=== PATIENT | male | born 1945 | race Caucasian/White ===

== ENCOUNTER 2017-03-28 18:52 | Emergency (ER) | payer MEDICARE, OTHER ==
--- NOTE | 2017-03-28 18:57 | ER Report ---
History and Physical Time Seen By MD: 18:56 HPI/ROS CHIEF COMPLAINT: dizziness, diaphoresis HISTORY OF PRESENT ILLNESS: This is a 71 year old male. He was brought to the ER after having an episode of diaphoresis, nausea and weakness. He had just taken his evening medicines including his insulin. He ate a salad prior to getting ready to eat dinner. His blood sugar was about 130. About 30 minutes after taking his medicines, he started to feel this way. No shortness of breath. No chest pain. EMS arrived and did a blood glucose check which was 57. They gave him an Amp of D50. He has never had low blood sugar problems in the past. He did just start on Actos because of high blood sugars. He said that this is working well for him. He is feeling better now. REVIEW OF SYSTEMS: Constitutional: No fever or chills. Eyes: No vision changes. ENT: No sore throat. No congestion. Cardiovascular: No chest pain. Respiratory: No shortness of breath. Gastrointestinal: No abdominal pain. No nausea or vomiting. Genitourinary: No dysuria. Musculoskeletal: No back pain. Skin: No rashes. Neurological: No numbness. No weakness. Allergies: Coded Allergies: ciprofloxacin (Unverified Allergy, Unknown, palpatations, 02/22/14) Uncoded Allergies: quentalin (Allergy, Mild, 03/28/17) Home Meds Reported Medications Naproxen Sodium (ALEVE) 220 Mg Tablet, 1 TAB PO PRN 02/22/14 Ca Carbonate/Vitamin D3/Vit K (VIACTIV SOFT CHEW TABLET) 1 Each Tab.chew, 1 TAB PO QDAY, TAB.CHEW 02/22/14 Multivitamin (DAILY MULTIPLE VITAMIN) 1 Each Tablet, 1 TAB PO DAILY 02/22/14 Aspirin (ASPIR 81) 81 Mg Tablet., 1 TAB PO QDAY, TAB 02/22/14 Reviewed Nurses Notes: Yes Smoking Status: Former Smoker Constitutional Vital Sign - Last 24 Hours 03/28/17 03/28/17 03/28/17 03/28/17 18:52 18:54 18:55 19:00 Temp 97.9 Pulse ??? 56 Resp 20 B/P (MAP) 153/84 153/84 (107) 133/77 (95) Pulse Ox 95 O2 Delivery Room Air 03/28/17 03/28/17 03/28/17/19/18 19:07 19:22 19:30 19:35 Pulse 51 49 47 Resp 10 13 B/P (MAP) 122/71 (88) Pulse Ox 93 94 91 03/28/17 03/28/17 03/28/17 03/28/17 19:50 20:00 20:05 20:20 Pulse 49 50 ??? Resp 18 13 B/P (MAP) 129/76 (93) Pulse Ox 92 94 03/28/17 03/28/17 03/28/17 03/28/17 20:30 20:35 20:50 21:00 Pulse 52 52 B/P (MAP) 148/86 (106) 128/72 (90) Pulse Ox 93 92 03/28/17 03/28/17 03/28/17 03/28/17 21:05 21:20 21:30 21:35 Pulse 59 47 60 B/P (MAP) 112/60 (77) Pulse Ox 94 92 90 03/28/17 03/28/17 03/28/17 21:50 22:00 22:05 Pulse 53 ??? B/P (MAP) 119/64 (82) Pulse Ox 90 Physical Exam General Appearance: The patient is alert. No acute distress. Non-toxic in appearance. Eyes: Pupils are equal, round. No pallor, injection or icterus. ENT: Mucous membranes are moist. Normal oral mucosa. Posterior oropharynx is normal. Neck: Supple and non tender. Respiratory: Lungs are clear to auscultation. Cardiovascular: Regular rate and rhythm. No murmurs, gallops or rubs. Normal capillary refill. Gastrointestinal: Abdomen is soft and non tender. Nondistended. Normal active bowel sounds. Neurological: Alert and oriented x3. No focal neurologic deficits Skin: Warm and dry. Musculoskeletal: Extremities are nontender. No tenderness in palpation of the cervical, thoracic and lumbar spine. DIFFERENTIAL DIAGNOSIS: After history and physical exam, differential diagnosis was considered for dizziness, hyperglycemia Medical Decision Making Data Points Result Diagram: 03/28/17183903/28/171839 Laboratory Hematology Test 03/28/17 18:40 03/28/17 21:54 Red Blood Count 5.22 M/uL (4.00-5.60) Mean Corpuscular Volume 90.4 fL (80.0-96.0) Mean Corpuscular Hemoglobin 31.0 pg (26.0-33.0) Mean Corpuscular Hemoglobin Concent 34.3 g/dL (32.0-36.0) Red Cell Distribution Width 12.7 % (11.5-14.5) Mean Platelet Volume 10.0 fL (7.2-11.1) Neutrophils (%) (Auto) 51.0 % (39.4-72.5) Lymphocytes (%) (Auto) 31.2 % (17.6-49.6) Monocytes (%) (Auto) 13.1 % (4.1-12.4) Eosinophils (%) (Auto) 3.4 % (0.4-6.7) Basophils (%) (Auto) 1.3 % (0.3-1.4) Nucleated RBC Relative Count (auto) 0.1 /100WBC Neutrophils # (Auto) 4.2 K/uL (2.0-7.4) Lymphocytes # (Auto) 2.5 K/uL (1.3-3.6) Monocytes # (Auto) 1.1 K/uL (0.3-1.0) Eosinophils # (Auto) 0.3 K/uL (0.0-0.5) Basophils # (Auto) 0.1 K/uL (0.0-0.1) Nucleated RBC Absolute Count (auto) 0.01 K/uL Sodium Level 140 mmol/L (137-145) Potassium Level 3.3 mmol/L (3.5-5.0) Chloride Level 104 mmol/L (98-107) Carbon Dioxide Level 23 mmol/L (22-30) Blood Urea Nitrogen 25 mg/dl (9-21) Creatinine 0.90 mg/dl (0.66-1.25) Glomerular Filtration Rate Calc > 60.0 Random Glucose 57 mg/dl (75-110) Calcium Level 10.1 mg/dl (8.4-10.2) Total Bilirubin 0.5 mg/dl (0.2-1.3) Aspartate Amino Transf (AST/SGOT) 29 U/L (0-35) Alanine Aminotransferase (ALT/SGPT) 33 U/L (0-56) Alkaline Phosphatase 73 U/L (0-126) Troponin I < 0.012 ng/ml Total Protein 7.5 gm/dl (6.3-8.2) Albumin 4.5 g/dl (3.5-5.0) Whole Blood Glucose 254 mg/DL (75-110) Chemistry Test 03/28/17 18:40 03/28/17 21:54 White Blood Count 8.2 k/uL (4.5-11.0) Red Blood Count 5.22 M/uL (4.00-5.60) Hemoglobin 16.2 g/dL (14.0-18.0) Hematocrit 47.2 % (42.0-52.0) Mean Corpuscular Volume 90.4 fL (80.0-96.0) Mean Corpuscular Hemoglobin 31.0 pg (26.0-33.0) Mean Corpuscular Hemoglobin Concent 34.3 g/dL (32.0-36.0) Red Cell Distribution Width 12.7 % (11.5-14.5) Platelet Count 247 K/uL (150-450) Mean Platelet Volume 10.0 fL (7.2-11.1) Neutrophils (%) (Auto) 51.0 % (39.4-72.5) Lymphocytes (%) (Auto) 31.2 % (17.6-49.6) Monocytes (%) (Auto) 13.1 % (4.1-12.4) Eosinophils (%) (Auto) 3.4 % (0.4-6.7) Basophils (%) (Auto) 1.3 % (0.3-1.4) Nucleated RBC Relative Count (auto) 0.1 /100WBC Neutrophils # (Auto) 4.2 K/uL (2.0-7.4) Lymphocytes # (Auto) 2.5 K/uL (1.3-3.6) Monocytes # (Auto) 1.1 K/uL (0.3-1.0) Eosinophils # (Auto) 0.3 K/uL (0.0-0.5) Basophils # (Auto) 0.1 K/uL (0.0-0.1) Nucleated RBC Absolute Count (auto) 0.01 K/uL Glomerular Filtration Rate Calc > 60.0 Calcium Level 10.1 mg/dl (8.4-10.2) Total Bilirubin 0.5 mg/dl (0.2-1.3) Aspartate Amino Transf (AST/SGOT) 29 U/L (0-35) Alanine Aminotransferase (ALT/SGPT) 33 U/L (0-56) Alkaline Phosphatase 73 U/L (0-126) Troponin I < 0.012 ng/ml Total Protein 7.5 gm/dl (6.3-8.2) Albumin 4.5 g/dl (3.5-5.0) Whole Blood Glucose 254 mg/DL (75-110) EKG/Imaging EKG Interpretation 12 lead EKG: Rhythm: Sinus bradycardia, rate 55 [place]: Left axis deviation QRS: Right bundle branch block ST segments: normal Imaging 2 VIEWS CHEST INDICATION: Dizziness. COMPARISON: None available FINDINGS: Cardiomediastinal silhouette and pulmonary vessels within normal limits. There is no focal infiltrate or lobar consolidation. There is no pneumothorax or pleural effusion. No nodule. Upper abdomen is unremarkable. No acute bony abnormality. IMPRESSION: 1. No acute cardiopulmonary process. Report Dictated By: Eddie Madrid at 03/28/2017 8:36 PM ED Course/Re-evaluation Clinical Indication for ER IV: Hydration, IV Access ED Course Blood sugars remain stable. Workup was negative as noted above with a normal EKG other than his chronic right bundle branch block, and on comparison of old EKGs this was unchanged. Troponin negative. Blood sugars remained stable. The patient did have something to eat and we monitored for several hours. Decision to Disposition Date: Mar 28, 2017 Decision to Disposition Time: 21:56 Depart Departure Latest Vital Signs Vital Signs Date Time Temp Pulse Resp B/P (MAP) Pulse Ox O2 Delivery O2 Flow Rate FiO2 03/28/17 22:05 ??? 03/28/17 22:00 119/64 (82) 03/28/17 21:50 90 03/28/17 20:05 13 03/28/17 18:54 97.9 Room Air Impression: Primary Impression: Diabetic hypoglycemia Condition: Improved Disposition: HOME OR SELF-CARE Referrals: JAYESH WASHINGTON (PCP) Patient Instructions: Hypoglycemia in a Person with Diabetes (ED) Additional Instructions: Continue to monitor for symptoms tonight. Check blood sugars for any worsening symptoms. Return to the ER if needed. VIKTORIYA MULLER MD Mar 28, 2017 18:57
[2017-03-28 19:12] LABS: PLATELET COUNT, AUTOMATED 247 K/uL (150-450)
--- NOTE | 2017-03-28 19:19 | EKG ---
FACILITY: [facility] - [place] PATIENT NAME: CHERYLE PENALOZA : [id number] MR: [id number] V: [id number] EXAM DATE: ORDERING PHYSICIAN: VIKTORIYA MULLER TECHNOLOGIST: Test Reason : Blood Pressure : / mmHG Vent. Rate : 055 BPM Atrial Rate : 055 BPM P-R Int : 184 ms QRS Dur : 170 ms QT Int : 510 ms P-R-T Axes : 051 -39 009 degrees QTc Int : 487 ms Sinus bradycardia Left axis deviation Right bundle branch block Abnormal ECG Similar to previous Confirmed by GINNY BURGOS ([id number] on 03/28/2017 8:23:08 PM Referred By: Confirmed By:GINNY BURGOS
--- NOTE | 2017-03-28 20:45 | RADIOLOGY IMAGING REPORT ---
[place] [facility] [place]IENT NAME: Pacheco Kaur : 1945 MR: [id number] V: [id number] EXAM DATE: ORDERING PHYSICIAN: VIKTORIYA MULLER TECHNOLOGIST: [place] [facility] [place] Pacheco Kaur : 1945 Visit/Account:[id number] Date of Sevice: 03/28/2017 2 VIEWS CHEST INDICATION: Dizziness. COMPARISON: None available FINDINGS: Cardiomediastinal silhouette and pulmonary vessels within normal limits. There is no focal infiltrate or lobar consolidation. There is no pneumothorax or pleural effusion. No nodule. Upper abdomen is unremarkable. No acute bony abnormality. IMPRESSION: 1. No acute cardiopulmonary process. Report Dictated By: Eddie Madrid at 03/28/2017 8:36 PM Report E-Signed By: Eddie Madrid at 03/28/2017 8:41 PM WSN:[id number]
[2017-03-28 22:00] VITALS: BP 119/64
== END 2017-03-28 22:09 | disposition home or self-care (01) ==
LOC: ER 18:55
DX: E11.649 Type 2 diabetes mellitus with hypoglycemia without coma (principal)
CPT/HCPCS: 36416; 71046; 82040; 82247; 82310; 82374; 82435; 82565; 82947; 82948; 84075; 84132; 84155; 84295; 84450; 84460; 84484; 84520; 85025; 93005; 99284

== ENCOUNTER → 2017-03-28 | Outpatient (CLI) | payer MEDICARE, OTHER ==
[~2017-03-28] MED LIST: ASP325 PO; ASPI-1471 PO; ASPI-715 PO; CA C1TAB11 PO; CA C1TAB9 PO; CEP500 PO; FISH OIL1 CAP PO; GLUC-307 PO; LOR5/325 PO; MULT-1335 PO; MULT-775 PO; MULT-865 PO; NAPR-1043 PO; NO ROUTINE MEDS; OMEG-95 PO; OMEP10CA40 PO; [UNRECOGNIZED DRUG - OTHER] PO
== END ==
LOC: AMB 18:14
PROVIDERS: ATTEND Nurse Practitioner
DX: E10.649 Type 1 diabetes mellitus with hypoglycemia without coma (principal); R42 Dizziness and giddiness; R94.31 Abnormal electrocardiogram [ECG] [EKG]
CPT/HCPCS: A0425; A0427

== ENCOUNTER → 2017-04-21 | Outpatient (CLI) | payer MEDICARE, OTHER ==
[2017-04-21 09:47] LABS: LDL CHOLESTEROL 91 mg/dl
== END ==
LOC: LAB 07:21
PROVIDERS: ATTEND Nurse Practitioner Family
DX: Z12.5 Encounter for screening for malignant neoplasm of prostate (principal); E11.9 Type 2 diabetes mellitus without complications; Z86.39 Personal history of other endocrine, nutritional and metabolic disease; E78.00 Pure hypercholesterolemia, unspecified; R74.8 Abnormal levels of other serum enzymes; E11.65 Type 2 diabetes mellitus with hyperglycemia; E55.9 Vitamin D deficiency, unspecified
CPT/HCPCS: 36415; 82040; 82247; 82306; 82310; 82374; 82435; 82465; 82565; 82607; 82947; 83036; 83718; 84075; 84132; 84153; 84155; 84295; 84403; 84443; 84450; 84460; 84478; 84520

== ENCOUNTER → 2017-07-22 | Outpatient (CLI) | payer MEDICARE, OTHER ==
[2017-07-22 08:17] LABS: LDL CHOLESTEROL 62 mg/dl
== END ==
LOC: LAB 06:55
PROVIDERS: ATTEND Nurse Practitioner Family
DX: I25.10 Atherosclerotic heart disease of native coronary artery without angina pectoris (principal); R81 Glycosuria; E78.00 Pure hypercholesterolemia, unspecified; E16.2 Hypoglycemia, unspecified; E10.9 Type 1 diabetes mellitus without complications
CPT/HCPCS: 36415; 82040; 82247; 82310; 82374; 82435; 82465; 82565; 82947; 83036; 83718; 84075; 84132; 84155; 84295; 84450; 84460; 84478; 84520

== ENCOUNTER → 2017-10-20 | Outpatient (CLI) | payer MEDICARE, OTHER | LOC: LAB 07:13 | PROVIDERS: ATTEND Nurse Practitioner Family | DX: Z12.5 Encounter for screening for malignant neoplasm of prostate (principal); E10.9 Type 1 diabetes mellitus without complications; E78.00 Pure hypercholesterolemia, unspecified | CPT/HCPCS: 36415; 83036; G0103; 82040; 82247; 82310; 82374; 82435; 82565; 82947; 84075; 84132; 84153; 84155; 84295; 84450; 84460; 84520 ==

== ENCOUNTER → 2017-12-31 | Outpatient (CLI) | payer MEDICARE, OTHER | LOC: LAB 08:30 | PROVIDERS: ATTEND Nurse Practitioner Family | DX: R73.01 Impaired fasting glucose (principal); E87.8 Other disorders of electrolyte and fluid balance, not elsewhere classified | CPT/HCPCS: 36415; 82040; 82247; 82310; 82374; 82435; 82565; 82947; 83036; 84075; 84132; 84155; 84295; 84450; 84460; 84520 ==

== ENCOUNTER → 2018-03-24 | Outpatient (CLI) | payer MEDICARE, OTHER | LOC: LAB 07:26 | PROVIDERS: ATTEND Nurse Practitioner Family | DX: E87.8 Other disorders of electrolyte and fluid balance, not elsewhere classified (principal); R73.01 Impaired fasting glucose | CPT/HCPCS: 36415; 82040; 82247; 82310; 82374; 82435; 82565; 82947; 83036; 84075; 84132; 84155; 84295; 84450; 84460; 84520 ==

== ENCOUNTER → 2018-03-30 | Outpatient (CLI) | payer MEDICARE, OTHER | LOC: LAB 11:05 | PROVIDERS: ATTEND Nurse Practitioner Family | DX: R53.81 Other malaise (principal) | CPT/HCPCS: 36415; 84436; 84443; 84479; 86376; 86800 ==

== ENCOUNTER → 2018-04-08 | Outpatient (CLI) | payer MEDICARE, OTHER ==
--- NOTE | 2018-04-08 15:48 | RADIOLOGY IMAGING REPORT ---
FACILITY: [facility] - [place] PATIENT NAME: Pacheco Kaur : 1945 MR: [id number] V: [id number] EXAM DATE: ORDERING PHYSICIAN: JAYESH WASHINGTON TECHNOLOGIST: Location: [facility] Patient: Pacheco Kaur : 1945 Visit/Account:[id number] Date of Sevice: 04/08/2018 THYROID HISTORY: Elevated thyroid levels, right side larger than the left COMPARISON: None. FINDINGS: SIZE: Normal. Right lobe: 4.4 x 1.6 x 1.5 cm Left lobe: 4 x 1.1 x 1.1 cm Isthmus: 2 mm PARENCHYMA: Homogeneous NODULES: Right lobe: * There is a 3 mm well-circumscribed ovoid hypoechoic nodule lateral aspect of the mid right lobe. There is a 2 mm cyst in the mid right lobe Left lobe: * There is a 3.3 mm well-circumscribed ovoid hypoechoic nodule anterior left lobe. There is a 3 mm ovoid slightly irregular hypoechoic nodule in the mid left lobe Isthmus: * None discrete. VASCULARITY: Within normal limits. ADDITIONAL FINDINGS: None. IMPRESSION: There are small subcentimeter nodules in both lobes of the thyroid gland REFERENCE: 2015 [place] [employer] Management Guidelines for Adult Patients with Thyroid Nodules and D ifferentiated Thyroid Cancer: The [place] [employer] Guidelines Task Force on Thyroid Nodul es and Differentiated Thyroid Cancer. SONOGRAPHIC PATTERNS: * Benign: Purely cystic nodules (no solid component); estimated risk of malignancy <1 percent; no bi opsy recommended. * Very Low Suspicion: Spongiform or partially cystic nodules without any of the sonographic features described in low, intermediate, or high suspicion patterns; estimated risk of malignancy <3 percent; consider FNA at > 2 cm (Observation without FNA is also a reasonable option). * Low Suspicion: Isoechoic or hyperechoic solid nodule, or partially cystic nodule with eccentric so lid areas, without microcalcification, irregular margin or ETE (extra-thyroidal extension), or taller than wide shape; estimated risk of malignancy 5-10 percent; recommend FNA at >1.5 cm. * Intermediate Suspicion: Hypoechoic solid nodule with smooth margins without microcalcifications, E TE (extra-thyroidal extension), or taller than wide shape; estimated risk of malignancy 10-20 percent ; recommend FNA at > 1 cm. * High Suspicion: Solid hypoechoic nodule or solid hypoechoic component of a partially cystic nodule with one or more of the following features: irregular margins (infiltrative, microlobulated), microc alcifications, taller than wide shape, rim calcifications with small extrusive soft tissue component, evidence of ETE (extra-thyroidal extension); estimated risk of malignancy >70-90 percent; recommend FNA at > 1 cm. NOTES: * Although a sonographically suspicious subcentimeter thyroid nodule without evidence of extrathyroi ranjana extension or sonographically suspicious lymph nodes may be observed with close sonographic follow -up rather than pursuing immediate FNA, patient age and preference may modify decision-making. A > 50% interval increase in nodule volume and/or development of new suspicious sonographic features are felt to be a valid reasons for potential re-aspiration of a nodule previously shown to have benig n FNA cytology. Report Dictated By: Ruth Luu MD at 04/08/2018 3:41 PM Report E-Signed By: Ruth Luu MD at 04/08/2018 3:44 PM WSN:[email or web address]
== END ==
LOC: US 06:50
PROVIDERS: ATTEND Nurse Practitioner Family
DX: E04.2 Nontoxic multinodular goiter (principal)
CPT/HCPCS: 76536

== ENCOUNTER → 2018-06-23 | Outpatient (CLI) | payer MEDICARE, OTHER | LOC: LAB 07:38 | PROVIDERS: ATTEND Nurse Practitioner Family | DX: R73.01 Impaired fasting glucose (principal); E87.8 Other disorders of electrolyte and fluid balance, not elsewhere classified | CPT/HCPCS: 36415; 82040; 82247; 82310; 82374; 82435; 82565; 82947; 83036; 84075; 84132; 84155; 84295; 84450; 84460; 84520 ==

== ENCOUNTER → 2018-09-16 | Outpatient (CLI) | payer MEDICARE, OTHER | LOC: LAB 07:14 | PROVIDERS: ATTEND Nurse Practitioner Family | DX: R53.81 Other malaise (principal) | CPT/HCPCS: 36415; 82040; 82247; 82310; 82374; 82435; 82565; 82947; 83036; 84075; 84132; 84155; 84295; 84436; 84443; 84450; 84460; 84479; 84520 ==